=== PATIENT | male | born 1985 | race Caucasian/White ===

== ENCOUNTER → 2023-10-16 | Outpatient (CLI) | payer BC ==
--- NOTE | 2023-10-16 13:29 | CA ---
Exercise Stress Test Report Name: [facility] Exam Date: 10/16/2023 10:56 Exam Location: [facility] Stress Ht (in): 69 Wt (lb): 218 BSA: 2.14 Ordering Phys: Feliciano Holland MD Referring Phys: Tre Tripp Technologist: Abad Mortensen Age: 38 Gender: M : 1985 Procedure CPT: Indications: R42 dizziness and giddiness ICD-10 Codes: Patient History: Medications: ATORVASTATIN,,,,, Meds past 24 hrs: Pretest Chest Pain: STRESS TEST Vu Protocol Exercise Duration (min:sec): 10:[address] Depressions (mm): 0 Angina Score: 0 Whipple Score: 10 Resting HR (bpm): 114 Peak HR (bpm): 175 Resting BP (mmHg): 129 / 100 Peak BP (mmHg): 170 / 103 MPHR: 183 Target HR: 156 % MPHR: 96 METS: 12.1 Total Dose: Peak Dose: Atropine: Double Product: 19480 BP Response: Stress Termination: TARGET HR REACHED/MAX EXERTION Stress Symptoms: NO SYMPTOMS Stress Summary: The patient's target heart rate was achieved, The hemodynamic response to exercise was normal ECG ANALYSIS Resting ECG: Sinus rhythm. Normal conduction. No arrhythmias. Normal repolarization. Stress ECG: No ECG evidence of ischemia with exercise. CONCLUSIONS Patient falls into low-risk group (DTS >= +5). This associates the patient with an annual CV mortality <= 0.5%. 1. Good exercise tolerance 2. Normal electrocardiographic response to exercise with no evidence of exercise induced ischemia Dr. Rubia Fields MD (Electronically Signed) Final Date: 16 October 2023 13:28
== END | disposition home or self-care (01) ==
LOC: RADNMMAIN 10:36
PROVIDERS: ATTEND Family Medicine
DX: R42 Dizziness and giddiness (principal)
CPT/HCPCS: 93017